=== PATIENT | female | born 1960 ===

== ENCOUNTER 2016-10-18 09:38 | Day surgery (SDC) | payer MEDICARE ==
[2016-10-18 10:43] VITALS: O2SAT 100
[2016-10-18 10:44] VITALS: BMI 27.4
[2016-10-18] MEDS ORDERED: Propofol 10 mg/ml Inj (20 ML) ONE (11:13)
[2016-10-18 12:02] VITALS: RESP 12; TEMP 98.5
[2016-10-18 15:56] VITALS: BP 129/77; PULSE 66
== END 2016-10-18 15:54 | disposition home or self-care (01) ==
LOC: C.ENDO 09:38
PROVIDERS: ATTEND Internal Medicine Gastroenterology
DX: Z12.11 Encounter for screening for malignant neoplasm of colon (principal); R10.13 Epigastric pain; K64.1 Second degree hemorrhoids; K64.4 Residual hemorrhoidal skin tags; K29.50 Unspecified chronic gastritis without bleeding; K26.9 Duodenal ulcer, unspecified as acute or chronic, without hemorrhage or perforation; I10 Essential (primary) hypertension; F41.9 Anxiety disorder, unspecified; I34.1 Nonrheumatic mitral (valve) prolapse; Z87.891 Personal history of nicotine dependence
CPT/HCPCS: 43239; 88305; 88313; 88342; G0121; J2704; J3010

== ENCOUNTER 2017-07-24 03:24 | Emergency (ER) | payer MEDICARE ==
[2017-07-24 03:24] VITALS: BMI 27.4
[2017-07-24 03:41] VITALS: TEMP 97.8; O2SAT 100
[2017-07-24 04:25] LABS: BASO % 0.3 % (0.0-2.0); EOS # 0.1 K/uL (0.0-0.7); EOS % 2.5 % (0.0-4.0); LYMPH # 1.1 K/uL (1.0-4.3); LYMPH % 29.5 % (20.0-40.0); MEAN CORPUSCULAR HEMOGLOBIN 27.9 pg (27.0-31.0); MEAN PLATELET VOLUME 8.5 fL (7.2-11.7); MONO # 0.4 K/uL (0.0-0.8); MONO % 9.9 % (0.0-10.0); NEUT # 2.2 K/uL (1.8-7.0); NEUT % 57.8 % (50.0-75.0); NRBC % 0.1 % (0.0-2.0); RBC 4.67 Mil/uL (3.80-5.20); RED CELL DISTRIBUTION WIDTH 13.7 % (11.5-14.5); WHITE BLOOD COUNT 3.8 K/uL (4.8-10.8)
[2017-07-24 04:33] LABS: ALB/GLOB RATIO 1.2 (1.0-2.1); ALBUMIN 4.1 g/dL (3.5-5.0); ALT/SGPT 25 U/L (9-52); AST/SGOT 23 U/L (14-36); BLOOD UREA NITROGEN 15 mg/dL (7-17); CALCIUM 9.6 mg/dl (8.6-10.4); GFR AFRICAN-AMERICAN > 60; GFR NON-AFRICAN AMERICAN > 60
--- NOTE | 2017-07-24 04:50 | C.PDOC ---
History Of Present Illness 56 year old female with PMHx of HTN and anxiety presents to the ED for evaluation of an anxiety attack. Patient reports she was woken from sleep feeling like her heart was racing associated with some dizziness. Patient reports having similar anxiety attacks in the past but reports it has not happened in while which concerned her. Patient took her Xanax which helped improve the symptoms. Patient was still concerned so she came for an evaluation. Patient denies fever, chill, nausea, vomit, CP, SOB, headache. Time Seen by Provider: 07/24/17 03:42 Chief Complaint (Nursing): Anxiety History Per: Patient History/Exam Limitations: no limitations Onset/Duration Of Symptoms: Hrs Current Symptoms Are (Timing): Still Present Suicide/Self Injury Attempted (Context): None Modifying Factor(s): None Severity: None Associated Symptoms: Anxiety. denies: Depression, Suicidal Thoughts, Suicidal Plan Recent travel outside of the [place]: No Additional History Per: Patient Past Medical History Reviewed: Historical Data, Nursing Documentation, Vital Signs Vital Signs: Last Vital Signs Temp 97.8 F 07/24/17 03:32 Pulse 68 07/24/17 05:08 Resp 16 07/24/17 05:08 BP 148/89 07/24/17 05:08 Pulse Ox 100 07/24/17 05:08 - Medical History PMH: Anemia (HAD BLOOD TRANSFUSION LONG TIME AGO), Anxiety, Arthritis, Depression, Gastritis, Gastrointestinal Ulcer, HTN Denies: Chronic Kidney Disease Surgical History: No Surg Hx Family History: States: Unknown Family Hx - Social History Hx Tobacco Use: Yes Hx Alcohol Use: No Hx Substance Use: No - Immunization History Hx Tetanus Toxoid Vaccination: No Hx Influenza Vaccination: No Hx Pneumococcal Vaccination: No Review Of Systems Constitutional: Negative for: Fever, Chills Cardiovascular: Positive for: Palpitations. Negative for: Chest Pain Respiratory: Negative for: Shortness of Breath Gastrointestinal: Negative for: Nausea, Vomiting Musculoskeletal: Negative for: Neck Pain Skin: Negative for: Rash Neurological: Positive for: Dizziness. Negative for: Headache Psych: Positive for: Anxiety Physical Exam - Physical Exam Appears: Non-toxic, No Acute Distress Skin: Normal Color, Warm, Dry Head: Atraumatic, Normacephalic Eye(s): bilateral: Normal Inspection Oral Mucosa: Moist Neck: Normal ROM, Supple Chest: Symmetrical Cardiovascular: Rhythm Regular Respiratory: Normal Breath Sounds, No Rales, No Rhonchi, No Wheezing Gastrointestinal/Abdominal: Soft, No Tenderness, No Guarding, No Rebound Extremity: Normal ROM, No Tenderness, No Swelling Neurological/Psych: Oriented x3, Normal Speech Gait: Steady ED Course And Treatment - Laboratory Results Result Diagrams: 07/24/17 04:16 07/24/17 04:16 O2 Sat by Pulse Oximetry: 100 (On RA) Pulse Ox Interpretation: Normal Progress Note: Plan: - Labs. While in the ED patient was hypertensive with BP of 170/100. Patient states she last took her valsartan at 10:00 am yesterday. Patient denies any headache, CP, visual c/o. On reeval pt feels better, no longer with anxiety, BP repeated while in the ED and has much improved, labs reviewed. Advised the patient to continue with BP meds at home and to follow up with PMD. Disposition Counseled Patient/Family Regarding: Diagnosis, Need For Followup, Rx Given - Disposition Referrals: [facility] [Outside] Disposition: HOME/ ROUTINE Disposition Time: :18 Condition: STABLE Additional Instructions: Continue current meds for anxiety and blood pressure Return to ER if worse Instructions: Anxiety, Adult (DC) Forms: [employer] (Stateless) - Clinical Impression Clinical Impression: Anxiety, Hypertension - PA / [employer] / Resident Statement MD/DO has reviewed & agrees with the documentation as recorded. - Scribe Statement The provider has reviewed the documentation as recorded by the Scribe All Mcdaniels All medical record entries made by the Scribe were at my direction and personally dictated by me. I have reviewed the chart and agree that the record accurately reflects my personal performance of the history, physical exam, medical decision making, and the department course for this patient. I have also personally directed, reviewed, and agree with the discharge instructions and disposition.
[2017-07-24 05:09] VITALS: BP 148/89; PULSE 68; RESP 16
--- NOTE | 2017-07-25 05:50 | CARD ---
APPROVED REPORT EKG Measurement Heart [id number] <Conclusion> Normal sinus rhythm Possible Left atrial enlargement Borderline ECG
== END 2017-07-24 05:29 | disposition home or self-care (01) ==
LOC: C.ER 03:24
DX: F41.9 Anxiety disorder, unspecified (principal); I10 Essential (primary) hypertension; Z72.0 Tobacco use